=== PATIENT | female | born 1965 | race Two or more races ===

== ENCOUNTER 2020-12-23 10:00 | Inpatient (IN) | payer OTHER ==
[~2020-12-23] VITALS: Ht 160 cm; Wt 70.3 kg
[2020-12-23] MEDS ORDERED: VITAMIN D PO (14:15)
[2020-12-23] MEDS ORDERED: COLLAGEN PO (14:16)
[2020-12-30] MEDS ORDERED: VITAMIN D310 MC2 (09:00)
[2020-12-31] MEDS ORDERED: ULTRACET PO (12:14)
== END 2020-12-31 14:17 | disposition home or self-care (01) | DRG 375 ==
LOC: O/R 12-30 06:04 → SURH 12-30 06:04
PROVIDERS: ADMIT Surgery; ATTEND Surgery
PROC: 0DBP8ZZ Excision of Rectum, Via Natural or Artificial Opening Endoscopic (ICD-10-PCS; principal; 2020-12-30 10:45)
DX: D37.5 Neoplasm of uncertain behavior of rectum (principal); K51.90 Ulcerative colitis, unspecified, without complications; K62.1 Rectal polyp